=== PATIENT | female | born 1985 | race Two or more races ===

== ENCOUNTER 2018-10-09 23:57 | Emergency (ER) | payer OTHER ==
[2018-10-10] MEDS ORDERED: IBUPROFEN 600 MG TABLET PO ONE (02:02)
[2018-10-10] MEDS ORDERED: ONDANSETRON 4 MG TAB.RAPDIS PO ONE (02:02)
--- NOTE | 2018-10-10 02:07 | ER Document Report ---
ED General - General Chief Complaint: Diarrhea Stated Complaint: COLD SYMPTOMS Time Seen by Provider: 10/10/18 01:34 TRAVEL OUTSIDE OF THE [place] IN LAST 30 DAYS: No - HPI Notes: Patient is a 33-year-old female that presents to the emergency department for chief complaint of myalgias, fevers, cough and diarrhea. Patient states for the last 5 days she has had sweats and chills. 2 days ago she started having nonbloody diarrhea. She states she has been taking [id number]-pyidyix flu medication with minimal relief of her symptoms. She came in today because the myalgias and chills were getting more severe. She states her cough is nonproductive and denies any shortness of breath. She denies any chest pain. Patient does states she has had some nausea and vomiting but has been able to tolerate drinking liquids. Past Medical History: Negative Past Surgical History: Negative Social History: Denies drugs alcohol and tobacco Family History: Reviewed and noncontributory for presenting illness Allergies: Reviewed, see documented allergy list. REVIEW OF SYSTEMS: CONSTITUTIONAL : fever chills diaphoresis recent illness EENT: No vision changes No congestion No sore throat CARDIOVASCULAR: No chest pain No palpitations RESPIRATORY: No shortness of breath cough No difficulty breathing GASTROINTESTINAL: No abdominal pain nausea vomiting diarrhea GENITOURINARY: No dysuria No hematuria No difficulty urinating MUSCULOSKELETAL: No back pain No leg pain No arm pain SKIN: No rashes No lesions LYMPHATIC: No swollen, enlarged glands. NEUROLOGICAL: No lightheadedness No headache No weakness No paresthesias PSYCHIATRIC: No anxiety No depression PHYSICAL EXAMINATION: Vital signs reviewed, nursing noted reviewed. GENERAL: Well-appearing, well-nourished and in no acute distress. HEAD: Atraumatic, normocephalic. EYES: Eyes appear normal, extraocular movements intact, sclera anicteric, conjunctiva are normal. ENT: nares patent, oropharynx clear without exudates. Mildly dry mucous membranes. NECK: Normal range of motion, supple without lymphadenopathy LUNGS: Breath sounds clear to auscultation bilaterally and equal. No wheezes rales or rhonchi. HEART: Tachycardic and regular rhythm without murmurs ABDOMEN: Soft, nontender, normoactive bowel sounds. No rebound, guarding, or rigidity. No masses appreciated. EXTREMITIES: Nontender, good range of motion, no pitting or edema. NEUROLOGICAL: No focal neurological deficits. Moves all extremities spontaneously Motor and sensory grossly intact on exam. PSYCH: Normal mood, normal affect. SKIN: Warm, Dry, normal turgor, no rashes or lesions noted on exposed skin Past Medical History - Social History Smoking Status: Never Smoker Family History: Reviewed & Not Pertinent Patient has suicidal ideation: No Patient has homicidal ideation: No Renal/ Medical History: Denies: Hx Peritoneal Dialysis Physical Exam - Vital signs Vitals: Temp Pulse BP Pulse Ox 98.3 F 112 H 127/80 H 99 10/10/18 00:04 10/10/18 00:04 10/10/18 00:04 10/10/18 00:04 Course - Re-evaluation Re-evalutation: 10/10/18 02:06 Vitals reviewed. Nursing notes reviewed. Patient is tachycardic and appears mildly dehydrated. She states she has not felt like drinking fluids today. She is tolerating oral intake but will be given Zofran for her nausea. Patient is currently afebrile because she took Tylenol prior to coming into the emergency room. Her symptoms are consistent with influenza but have been ongoing for 5 days and she is not a candidate for Tamiflu. Patient was counseled on increasing her hydration at home as well as taking Tylenol and ibuprofen as needed for the sweats and chills. She was offered IV hydration in the emergency room because of her tachycardia and declined. Patient is oxygenating well on room air and in no respiratory distress. She will be discharged home in stable condition. - Vital Signs Vital signs: Temp Pulse Resp BP Pulse Ox 98.3 F 112 H 127/80 H 99 10/10/18 00:04 10/10/18 00:04 10/10/18 00:04 10/10/18 00:04 Discharge - Discharge Clinical Impression: Flu-like symptoms Condition: Stable Disposition: HOME, SELF-CARE Instructions: Influenza ([facility]), Family Physicians / Practices Additional Instructions: Please return to the emergency department if you have any worsening, or concern of your symptoms. Please return to the emergency department if you develop chest pain, difficulty breathing, severe abdominal pain, or ongoing vomiting. Please follow-up with your primary care physician in 2-3 days and any other recommended physicians. If prescribed, take all medications as directed. If you have any questions or concerns do not hesitate to return the emergency department for evaluation. Increase hydration by drinking more water. Take Tylenol and ibuprofen as needed for fever and muscle pain Prescriptions: Ondansetron [Zofran Odt 4 mg Tablet] 1 tab PO Q4H PRN #15 tab.rapdis PRN Reason: For Nausea/Vomiting Referrals: [facility] [Provider Group] - Follow up as needed
[2018-10-10 02:14] VITALS: BP 129/70
== END 2018-10-10 02:14 | disposition home or self-care (01) ==
LOC: ER 23:57
DX: R19.7 Diarrhea, unspecified (principal); M79.10 Myalgia, unspecified site; R50.9 Fever, unspecified; R05 Cough
CPT/HCPCS: 99283; S0119

== ENCOUNTER → 2019-10-07 | Outpatient (CLI) | payer OTHER ==
--- NOTE | 2019-10-07 16:16 | RADIOLOGY REPORT (SQ) ---
EXAM DESCRIPTION: NM 3 PHASE BONE SCAN COMPLETED DATE/TIME: 10/07/2019 2:28 pm REASON FOR STUDY: STRESS FRACTURE, RIGHT ANKLE, INITIAL ENCOUNTER FOR FRACTURE M84.371A STRESS FRAC TURE, RIGHT ANKLE, INITIAL ENCOUNTER FOR COMPARISON: Radiographs dated 09/28/2019 RADIONUCLIDE AND DOSE: 20 millicuries Tc99m HDP. The route of agent administration: Intravenous. ADDITIONAL DRUGS AND DOSES: None. TECHNIQUE: Following injection of the radiopharmaceutical, serial blood flow images acquired. Equil ibrium blood pool images then acquired. Routine delayed images at 3 hours acquired of the areas of c linical concern with additional focused images as needed. AREA OF INTEREST: Right foot LIMITATIONS: None. FINDINGS: VASCULAR FLOW IMAGES: The flow appears to be synchronous and symmetrical. BLOOD POOL IMAGES: No asymmetry or focal areas of soft-tissue hyper-perfusion. BONES: There is focal increased uptake in the right 1st metatarsal-phalangeal joint. There is ill-de fined uptake in each hindfoot. There is no abnormal uptake in the ankles. KIDNEYS: Symmetric excretion without obstruction. OTHER: No other significant finding. IMPRESSION: There is focal degenerative uptake in the right 1st metatarsal-phalangeal joint. No oth er significant abnormal uptake is seen. COMMENT: Quality measure 147: Current bone scan is compared with any available plain radiographs, p rior bone scans, and CT/MRI. TECHNICAL DOCUMENTATION: JOB ID: [id number] [employer]- All Rights Reserved Reading location - IP/workstation name: [email or web address]
== END ==
LOC: RAD 10:01
PROVIDERS: ATTEND Family Medicine
DX: M84.371A Stress fracture, right ankle, initial encounter for fracture (principal)
CPT/HCPCS: 78315; A9561; Q9969